=== PATIENT | male | born 1990 | race Caucasian/White ===

== ENCOUNTER 2023-11-10 19:47 | Observation (INO) ==
[2023-11-10 20:23] LABS: Basophils # (auto) 0.03 K/uL (0.00-0.20); Basophils % (auto) 0.3 %; Eosinophils # (auto) 0.02 K/uL (0.00-0.50); Eosinophils % (auto) 0.2 %; Hematocrit (blood only) 47.9 % (42.0-52.0); Immature Granulocytes # (auto) 0.04 K/uL (0.01-0.20); Immature Granulocytes % (auto) 0.4 %; Lymphocytes # (auto) 1.49 K/uL (1.20-3.40); Lymphocytes % (auto) 13.1 %; Mean Corpuscular Hemoglobin 29.1 pg (25.0-34.0); Mean Corpuscular Hgb Conc 35.5 g/dL (32.0-36.0); Mean Corpuscular Volume 81.9 fL (80.0-100.0); Mean Platelet Volume 12.1 fL (9.4-12.4); Monocytes # (auto) 0.76 K/uL (0.11-0.59); Monocytes % (auto) 6.7 %; Neutrophils # (auto) 9.07 K/uL (1.40-6.50); Neutrophils % (auto) 79.3 %; Platelet Count 230 K/uL (130-400); RDW Coefficient of Variation 12.2 % (11.5-14.5); RDW Standard Deviation 36.4 fL (36.4-46.3); Red Blood Count 5.85 M/uL (4.70-6.10); White Blood Count 11.41 K/ul (4.8-10.8)
[2023-11-10] MEDS: SODIUM CHLORIDE 0.9% 1,000 ML IV ONE (20:36)
--- NOTE | 2023-11-10 20:36 | Emergency Department Note ---
Impression & Plan Bloody diarrhea, Acute dehydration, Acute hyperglycemia, Leukocytosis ED Provider Note NAME: DONOVAN CAMPOVERDE AGE: 32 SEX: M : 1990 ARRIVES VIA: Walk-In INFORMANT: [Patient] ED PROVIDER(S): [Roberto Galindo MD] CHIEF COMPLAINT: Bloody diarrhea HISTORY OF PRESENT ILLNESS: The patient is a 32-year-old male who states he had bloody mucousy diarrhea all day. He has had multiple bouts. He noticed some nausea but no vomiting. He has really no abdominal pain. He has had some sweats but no documented fever although, he felt like he was warm. He feels he may be dehydrated. He has not had any sick contacts that had him concerned. He did have a salad that was quite old and he wonders if this caused his trouble. He has no history of similar difficulty. PMHx/PSHx/Social Hx: See Below PHYSICAL EXAM: GENERAL: Patient is in no acute distress. HEENT: No acute trauma, normocephalic atraumatic, mucous membranes moist, no nasal congestion. NECK: No stridor, no adenopathy, no meningismus, trachea is midline. LUNGS: Clear to auscultation bilaterally, no wheeze, no rhonchi, breath sounds equal. HEART: Mildly tachycardic, regular rhythm, no murmurs. ABDOMEN: Soft, nontender, no peritonitis. Obese. EXTREMITIES: No cyanosis, full range of motion of all the joints without pain or difficulty. NEUROLOGIC: Oriented x 3, no acute motor or sensory deficits, no focal weakness. SKIN: No jaundice, no diaphoresis. DIFFERENTIAL DIAGNOSIS: Bacterial or viral intestinal infection, foodborne or viral illness, colitis, diverticulitis, dehydration, among others. EMERGENCY DEPARTMENT PROCEDURES: MEDICAL DECISION MAKING: There is a mild leukocytosis, this could be consistent with infection or the stress of his presentation. There was a normal hemoglobin and platelet count. VBG did not show any acidosis. Sodium was slightly low. Sugar was quite high at 314. A mild anion gap was seen. No concerning liver enzyme elevation. On exam, the patient appeared dehydrated. He was somewhat tachycardic. The patient received IV Tylenol. He was given IV Zofran. He was given a liter of IV saline and a liter of IV lactated Ringer's. The patient is still mildly tachycardic. He has not been able to provide a stool sample for testing. Given the dehydration, given the bloody stool, given the tachycardia and now the new onset hyperglycemia, I do think hospitalization is indicated. I spoke with the patient and case management, the on-call hospitalist was consulted. Prior/Outside records/notes reviewed: None Imaging/x-ray results per my interpretation: Chronic Medical/Social conditions affecting care: Care/Management discussed with: Case management, the on-call hospitalist. Level of care consideration(s): After review of the information above and other included data: --I believe the patient requires escalation of care to admission DISPOSITION: Admission Past Med/Surg History Problem List (Updated 11/10/23 @ 23:21 by Roberto Galindo MD) Leukocytosis (Acute) Acute hyperglycemia (Acute) Acute dehydration (Acute) Bloody diarrhea (Acute) Medical History Obese Social History Smoking Status: Never smoker Feels Safe at Home: Yes Allergies Allergies Allergy/AdvReac Type Severity Reaction Status Date / Time amoxicillin Allergy Intermediate Rash Verified 11/10/23 22:36 dog dander Allergy Mild SNEEZING, Verified 11/10/23 22:36 CONGESTION pollen extracts Allergy Mild SNEEZING, Verified 11/10/23 22:36 CONGESTION Home Meds Home Medications Medication Instructions Recorded Confirmed No Known Home Medications 11/10/23 11/10/23 Results & Data (ED) Vital Signs Vital Signs - 24 hr 11/10/23 19:52 11/10/23 19:57 11/10/23 19:57 Temperature 36.6 C Temperature Source Oral Pulse Rate 98 H Pulse Rate [Apical] Pulse Rhythm Regular Pulse Rhythm [Apical] Pulse Strength [Apical] Respiratory Rate 19 Respiratory Effort / Characteristics Non-Labored Non-Labored Spontaneous Respiratory Depth Normal Normal Respiratory Pattern Blood Pressure 161/95 H Blood Pressure [Right Arm] Blood Pressure Mean 117 Blood Pressure Mean [Right Arm] Blood Pressure Position [Right Arm] Pulse Oximetry 92 Oxygen Delivery Method Room Air Room Air Sepsis Recent Fever Within 48 Hours Yes Sepsis New/Unexplained Change in Mental Status No Sepsis Action Taken by Nursing No Action Required 11/10/23 21:33 11/10/23 21:39 Temperature Temperature Source Pulse Rate 116 H Pulse Rate [Apical] 105 H Pulse Rhythm Pulse Rhythm [Apical] Regular Pulse Strength [Apical] Normal Respiratory Rate 18 Respiratory Effort / Characteristics Non-Labored Spontaneous Respiratory Depth Normal Respiratory Pattern Regular Blood Pressure Blood Pressure [Right Arm] 135/93 Blood Pressure Mean Blood Pressure Mean [Right Arm] 107 Blood Pressure Position [Right Arm] Lying Pulse Oximetry 99 Oxygen Delivery Method Room Air Sepsis Recent Fever Within 48 Hours Sepsis New/Unexplained Change in Mental Status Sepsis Action Taken by Group Home Medications Current Medication List: was personally reviewed by me Laboratory Data Attestation: I reviewed the patient's lab results. 11/10/23 20:00 11/10/23 20:00 Lab Results 11/10/23 11/10/23 Range/Units 20:00 21:48 WBC 11.41 H (4.8-10.8) K/ul RBC 5.85 (4.70-6.10) M/uL Hgb 17.0 (14.0-18.0) g/dl Hct 47.9 (42.0-52.0) % MCV 81.9 (80.0-100.0) fL MCH 29.1 (25.0-34.0) pg MCHC 35.5 (32.0-36.0) g/dL RDW Std Deviation 36.4 (36.4-46.3) fL RDW Coeff of Saima 12.2 (11.5-14.5) % Plt Count 230 (130-400) K/uL MPV 12.1 (9.4-12.4) fL Immature Gran % (Auto) 0.4 % Neut % (Auto) 79.3 % Lymph % (Auto) 13.1 % Metcalfe % (Auto) 6.7 % Eos % (Auto) 0.2 % Baso % (Auto) 0.3 % Neut # (Auto) 9.07 H (1.40-6.50) K/uL Lymph # (Auto) 1.49 (1.20-3.40) K/uL Metcalfe # (Auto) 0.76 H (0.11-0.59) K/uL Eos # (Auto) 0.02 (0.00-0.50) K/uL Baso # (Auto) 0.03 (0.00-0.20) K/uL Immature Gran # (Auto) 0.04 (0.01-0.20) K/uL VBG pH 7.40 (7.36-7.41) VBG pCO2 39 (38-50) mmHg VBG pO2 42 mmHg VBG HCO3 24 mmol/L VBG O2 Saturation 73.4 % VBG Base Excess -0.5 mEq/L Sodium 132 L (136-145) mmol/L Potassium 4.4 (3.5-5.1) mmol/L Chloride 97 L (98-107) mmol/L Carbon Dioxide 22 (21-32) mmol/L Anion Gap 13 H (3-11) BUN 10 (6-23) mg/dl Creatinine 0.79 (0.6-1.4) mg/dl Est Cr Clr Drug Dosing 213.9 ml/min Est GFR ( Amer) 137.7 ml/min Est GFR (Non-Af Amer) 118.8 ml/min BUN/Creatinine Ratio 12.7 (10-20) Glucose 314 H* (70-99(Fasting)) mg/dl Calcium 9.7 (8.6-10.3) mg/dl Magnesium 1.8 (1.7-2.4) mg/dl Total Bilirubin 1.0 (0.2-1.0) mg/dl AST 25 (13-39) U/L ALT 54 H (7-52) U/L Alkaline Phosphatase 40 (34-104) U/L Total Protein 8.1 (6.0-8.3) gm/dl Albumin 4.7 (3.4-5.0) gm/dl Globulin 3.4 (2.5-4.0) gm/dl Albumin/Globulin Ratio 1.4 (0.9-2) Administered Medications Discontinued Medications Acetaminophen (Ofirmev) 1,000 mg in 100 mls @ 400 mls/hr IV NOW STA Stop: 11/10/23 20:40 Last Infusion: 11/10/23 21:38 Dose: Infused Documented By: Admin: 11/10/23 20:37 Dose: 400 mls/hr Documented By: CINDY Sodium Chloride (Nss) 1,000 mls @ 999 mls/hr IV .Q1H1M ONE Stop: 11/10/23 21:26 Last Infusion: 11/10/23 21:39 Dose: Infused Documented By: Admin: 11/10/23 20:36 Dose: 999 mls/hr Documented By: CINDY Lactated Ringer's (Lr) 1,000 mls @ 999 mls/hr IV .Q1H1M ONE Stop: 11/10/23 21:32 Last Admin: 11/10/23 21:38 Dose: 999 mls/hr Documented By: ÓSCAR Ondansetron HCl (Ondansetron Inj 2 Mg/Ml 2 Ml Vial) 4 mg IV NOW STA Stop: 11/10/23 20:27 Last Admin: 11/10/23 20:37 Dose: 4 mg Documented By: CINDY Discharge Plan Visit Data Chief Complaint: Diarrhea Stated Complaint: DIARRHEA WITH BLODD, NAUSEA ED Provider: Roberto Galindo Discharge Problem: Bloody diarrhea, Acute dehydration, Acute hyperglycemia, Leukocytosis Patient Disposition: Admitted As Inpatient Condition: Fair Forms Stand Alone Forms: [facility], Important Visit Information Prescriptions Prescriptions: No Action No Known Home Medications Referrals Referrals: PCP,NO [Physician] - Discharge Problem: Leukocytosis Qualifiers: Leukocytosis type: unspecified Qualified Code(s): D72.829 - Elevated white blood cell count, unspecified
[2023-11-10] MEDS: ACETAMINOPHEN 1,000 MG/100 ML VIAL IV STA (20:37)
[2023-11-10] MEDS: ONDANSETRON INJ 2 MG/ML 2 ML VIAL IV STA (20:37)
[2023-11-10 20:49] LABS: Albumin Globulin Ratio 1.4 (0.9-2); Albumin Level 4.7 gm/dl (3.4-5.0); BUN Creatinine Ratio 12.7 (10-20); Calcium 9.7 mg/dl (8.6-10.3); Creatinine Clr Calc Pharmacy 213.9 ml/min; Est GFR (African American) 137.7 ml/min; Est GFR (Non-African American) 118.8 ml/min; Globulin 3.4 gm/dl (2.5-4.0); Magnesium 1.8 mg/dl (1.7-2.4); Potassium 4.4 mmol/L (3.5-5.1); Total Protein 8.1 gm/dl (6.0-8.3)
[2023-11-10] MEDS: LACTATED RINGER'S 1,000 ML IV ONE (21:38)
[2023-11-10 21:54] LABS: Base Excess VBG -0.5 mEq/L; HCO3 VBG 24 mmol/L; Oxygen Saturation VBG 73.4 %; PCO2 VBG 39 mmHg (38-50); PO2 VBG 42 mmHg
[2023-11-11 02:00] LABS: Adenovirus F 40/41 PCR Not Detected (NotDetected); Astrovirus PCR Not Detected (NotDetected); Campylobacter PCR Not Detected (NotDetected); Cryptosporidium PCR Not Detected (NotDetected); Cyclospora cayetanensis PCR Not Detected (NotDetected); Entamoeba histolytica PCR Not Detected (NotDetected); Enteroaggregative E.coli(EAEC) Not Detected (NotDetected); Enterotoxigenic E.coli (ETEC) Not Detected (NotDetected); Giardia lamblia PCR Not Detected (NotDetected); Norovirus GI/GII PCR Not Detected (NotDetected); Plesiomonas shigelloides PCR Not Detected (NotDetected); Rotavirus A PCR Not Detected (NotDetected); Salmonella PCR Not Detected (NotDetected); Sapovirus PCR Not Detected (NotDetected); Shiga-like Toxin E.coli (STEC) Not Detected (NotDetected); Shigella/Enteroinvasive E.coli Not Detected (NotDetected); Vibrio cholerae PCR Not Detected (NotDetected); Vibrio species PCR Not Detected (NotDetected); Yersinia enterocolitica PCR Not Detected (NotDetected)
[2023-11-11 02:03] LABS: Enteropathogenic E.coli (EPEC) DETECTED (NotDetected)
[2023-11-11] MEDS ORDERED: DEXTROSE 50% 50 ML SYRINGE IV PRN (02:21)
[2023-11-11] MEDS ORDERED: GLUCOSE 10 TAB/TUBE PO PRN (02:21)
[2023-11-11] MEDS ORDERED: GLUCOSE 40% GEL 15 GM TUBE PO PRN (02:21)
[2023-11-11] MEDS ORDERED: CARBOHYDRATES FOR HYPOGLYCEMIA PO PRN (02:21)
[2023-11-11] MEDS ORDERED: GLUCAGON FOR INJ 1 MG VIAL SQ PRN (02:21)
--- NOTE | 2023-11-11 02:26 | History & Physical Report ---
Date of Service November 11, 2023 Assessment & Plan (1) Bloody diarrhea: Plan: 32-year-old male with past medical history significant for obesity comes in because of 1 day duration of bloody diarrhea and also found to have hyperglycemia.Patient states today he had several episodes of bloody mucousy diarrhea. When he is having bowel movements has some abdominal discomfort otherwise no abdominal pain. No recent travel. No outside food. No fevers. Was lightheaded earlier. No headaches. No blurred vision. No runny nose or sore throat. No cough. No chest pain or shortness of breath. No nausea currently. Hemodynamics okay. Bloody diarrhea Dehydration Stool studies showing positive for enteropathogenic E. coli Supportive care with IV fluids Monitor electrolytes GI consult in am Hyperglycemia New onset diabetes Insulin sliding scale Follow HbA1c levels Morbid obesity Needs counseling Nutrition follow-up Sleep study as outpatient DVT prophylaxis SCDs for now Disposition Medical floor Full code History of Present Illness Chief Complaint: Diarrhea and hyperglycemia Primary Care Provider: Debra Coburn MD 32-year-old male with past medical history significant for obesity comes in because of 1 day duration of bloody diarrhea and also found to have hyperglycemia.Patient states today he had several episodes of bloody mucousy diarrhea. When he is having bowel movements has some abdominal discomfort otherwise no abdominal pain. No recent travel. No outside food. No fevers. Was lightheaded earlier. No headaches. No blurred vision. No runny nose or sore throat. No cough. No chest pain or shortness of breath. No nausea currently. Hemodynamics okay. Past med history. As mentioned above Past surgical history. Stumbled. Social history. No smoking. Alcohol occasional. No drug use. Family history. Paternal grandmother has diabetes and kidney issues Allergies Allergy/AdvReac Type Severity Reaction Status Date / Time amoxicillin Allergy Intermediate Rash Verified 11/10/23 22:36 dog dander Allergy Mild SNEEZING, Verified 11/10/23 22:36 CONGESTION pollen extracts Allergy Mild SNEEZING, Verified 11/10/23 22:36 CONGESTION Home Medications Medication Instructions Recorded Confirmed Type No Known Home Medications 11/10/23 11/10/23 History Past Med/Surg History Problem List (Updated 11/10/23 @ 23:21 by Roberto Galindo MD) Leukocytosis (Acute) Acute hyperglycemia (Acute) Acute dehydration (Acute) Bloody diarrhea (Acute) Medical History Obese Social History Smoking Status: Never smoker Do You Dip or Chew Tobacco: No; Hx Alcohol Use: No Hx Substance Use: No Preferred Language: Yi Communication Ability: Effective Induction Heat Treater Required: No Beliefs That Will Affect Care: None Current Living Situation: Family Other Information That Helps Us Care for You: No Feels Safe at Home: Yes Safety Concerns: Feels Safe At This Time Assistive Devices: None Review of Systems Review of Systems: All systems reviewed & are unremarkable except as noted in HPI & below Physical Exam Physical Exam: General- Not in distress. Head- atraumatic Eyes- PERRL. ENT- oropharynx clear Neck- supple, no JVD. Lungs- clear to auscultation no wheezing or crackles. Heart- regular rhythm; no murmur, no gallop. Abdomen- normal bowel sounds, soft, nontender, no distension Extremities- no pretibial edema, no erythema seen Neuro- alert, oriented PERRL, no facial palsy; no dysarthria; moves extremities. Results & Data Results & Data Vital Signs (Past 12 Hours) Vital Signs Temp Pulse Pulse Resp BP BP Pulse Ox 11/11/23 01:35 87 11/10/23 23:00 102 H 18 142/94 H 99 11/10/23 21:39 105 H 18 135/93 99 11/10/23 21:33 116 H 11/10/23 19:57 11/10/23 19:52 36.6 C 98 H 19 161/95 H 92 O2 Del Method 11/11/23 01:35 11/10/23 23:00 Room Air 11/10/23 21:39 Room Air 11/10/23 21:33 11/10/23 19:57 Room Air 11/10/23 19:52 Room Air Diagnostic Findings Laboratory Results WBC 11.41 K/ul (4.8-10.8) H 11/10/23 20:00 RBC 5.85 M/uL (4.70-6.10) 11/10/23 20:00 Hgb 17.0 g/dl (14.0-18.0) 11/10/23 20:00 Hct 47.9 % (42.0-52.0) 11/10/23 20:00 MCV 81.9 fL (80.0-100.0) 11/10/23 20:00 MCH 29.1 pg (25.0-34.0) 11/10/23 20:00 MCHC 35.5 g/dL (32.0-36.0) 11/10/23 20:00 RDW Std Deviation 36.4 fL (36.4-46.3) 11/10/23 20:00 RDW Coeff of Saima 12.2 % (11.5-14.5) 11/10/23 20:00 Plt Count 230 K/uL (130-400) 11/10/23 20:00 MPV 12.1 fL (9.4-12.4) 11/10/23 20:00 Immature Gran % (Auto) 0.4 % 11/10/23 20:00 Neut % (Auto) 79.3 % 11/10/23 20:00 Lymph % (Auto) 13.1 % 11/10/23 20:00 Floyd % (Auto) 6.7 % 11/10/23 20:00 Eos % (Auto) 0.2 % 11/10/23 20:00 Baso % (Auto) 0.3 % 11/10/23 20:00 Neut # (Auto) 9.07 K/uL (1.40-6.50) H 11/10/23 20:00 Lymph # (Auto) 1.49 K/uL (1.20-3.40) 11/10/23 20:00 Floyd # (Auto) 0.76 K/uL (0.11-0.59) H 11/10/23 20:00 Eos # (Auto) 0.02 K/uL (0.00-0.50) 11/10/23 20:00 Baso # (Auto) 0.03 K/uL (0.00-0.20) 11/10/23 20:00 Immature Gran # (Auto) 0.04 K/uL (0.01-0.20) 11/10/23 20:00 VBG pH 7.40 (7.36-7.41) 11/10/23 21:48 VBG pCO2 39 mmHg (38-50) 11/10/23 21:48 VBG pO2 42 mmHg 11/10/23 21:48 VBG HCO3 24 mmol/L 11/10/23 21:48 VBG O2 Saturation 73.4 % 11/10/23 21:48 VBG Base Excess -0.5 mEq/L 11/10/23 21:48 Sodium 132 mmol/L (136-145) L 11/10/23 20:00 Potassium 4.4 mmol/L (3.5-5.1) 11/10/23 20:00 Chloride 97 mmol/L (98-107) L 11/10/23 20:00 Carbon Dioxide 22 mmol/L (21-32) 11/10/23 20:00 Anion Gap 13 (3-11) H 11/10/23 20:00 BUN 10 mg/dl (6-23) 11/10/23 20:00 Creatinine 0.79 mg/dl (0.6-1.4) 11/10/23 20:00 Est Cr Clr Drug Dosing 213.9 ml/min 11/10/23 20:00 Est GFR ( Amer) 137.7 ml/min 11/10/23 20:00 Est GFR (Non-Af Amer) 118.8 ml/min 11/10/23 20:00 BUN/Creatinine Ratio 12.7 (10-20) 11/10/23 20:00 Glucose 314 mg/dl (70-99(Fasting)) H* 11/10/23 20:00 Calcium 9.7 mg/dl (8.6-10.3) 11/10/23 20:00 Magnesium 1.8 mg/dl (1.7-2.4) 11/10/23 20:00 Total Bilirubin 1.0 mg/dl (0.2-1.0) 11/10/23 20:00 AST 25 U/L (13-39) 11/10/23 20:00 ALT 54 U/L (7-52) H 11/10/23 20:00 Alkaline Phosphatase 40 U/L (34-104) 11/10/23 20:00 Total Protein 8.1 gm/dl (6.0-8.3) 11/10/23 20:00 Albumin 4.7 gm/dl (3.4-5.0) 11/10/23 20:00 Globulin 3.4 gm/dl (2.5-4.0) 11/10/23 20:00 Albumin/Globulin Ratio 1.4 (0.9-2) 11/10/23 20:00 Stl C. cayetanensis PCR Not Detected (NotDetected) 11/11/23 00:12 Stool Rotavirus A PCR Not Detected (NotDetected) 11/11/23 00:12 Stl Adenov F 40/41 PCR Not Detected (NotDetected) 11/11/23 00:12 Stool Astrovirus (PCR) Not Detected (NotDetected) 11/11/23 00:12 Stool Campylobacter PCR Not Detected (NotDetected) 11/11/23 00:12 Stl C. diff Tox B Gene Negative Cdiff Gene (Neg) 11/11/23 00:12 Stool Cryptosporidium PCR Not Detected (NotDetected) 11/11/23 00:12 Stl E.coli Shiga Tox PCR Not Detected (NotDetected) 11/11/23 00:12 Stl Enterotoxigenic E PCR Not Detected (NotDetected) 11/11/23 00:12 Stool EPEC (PCR) DETECTED (NotDetected) A* 11/11/23 00:12 Stool EAEC (PCR) Not Detected (NotDetected) 11/11/23 00:12 Stl E. histolytica PCR Not Detected (NotDetected) 11/11/23 00:12 Stool Giardia Lamblia PCR Not Detected (NotDetected) 11/11/23 00:12 Stool Salmonella PCR Not Detected (NotDetected) 11/11/23 00:12 Stool Sapovirus (PCR) Not Detected (NotDetected) 11/11/23 00:12 Stl P. shigelloides PCR Not Detected (NotDetected) 11/11/23 00:12 Stl Shigella/EIEC PCR Not Detected (NotDetected) 11/11/23 00:12 St Y.enterocolitica PCR Not Detected (NotDetected) 11/11/23 00:12 Stool Vibrio (PCR) Not Detected (NotDetected) 11/11/23 00:12 Stl Vibrio cholerae PCR Not Detected (NotDetected) 11/11/23 00:12 Stl Norovirus GI/GII PCR Not Detected (NotDetected) 11/11/23 00:12 Code Status & VTE Plan VTE Prophylaxis Plan VTE Prophylaxis will be ordered: Yes
[2023-11-11] MEDS: LACTATED RINGER'S 1,000 ML IV SCH (02:54)
[2023-11-11 07:26] LABS: Basophils # (auto) 0.04 K/uL (0.00-0.20); Basophils % (auto) 0.5 %; Eosinophils # (auto) 0.15 K/uL (0.00-0.50); Eosinophils % (auto) 1.7 %; Hematocrit (blood only) 43.9 % (42.0-52.0); Hemoglobin 14.9 g/dl (14.0-18.0); Immature Granulocytes # (auto) 0.04 K/uL (0.01-0.20); Immature Granulocytes % (auto) 0.5 %; Lymphocytes # (auto) 2.85 K/uL (1.20-3.40); Lymphocytes % (auto) 32.2 %; Mean Corpuscular Hemoglobin 28.7 pg (25.0-34.0); Mean Corpuscular Hgb Conc 33.9 g/dL (32.0-36.0); Mean Corpuscular Volume 84.4 fL (80.0-100.0); Mean Platelet Volume 11.5 fL (9.4-12.4); Monocytes # (auto) 0.89 K/uL (0.11-0.59); Monocytes % (auto) 10.1 %; Neutrophils # (auto) 4.87 K/uL (1.40-6.50); Platelet Count 182 K/uL (130-400); RDW Coefficient of Variation 12.5 % (11.5-14.5); RDW Standard Deviation 38.1 fL (36.4-46.3); White Blood Count 8.84 K/ul (4.8-10.8)
[2023-11-11 07:59] LABS: Calcium 8.7 mg/dl (8.6-10.3); Magnesium 1.7 mg/dl (1.7-2.4); Potassium 3.9 mmol/L (3.5-5.1)
[2023-11-11 08:04] LABS: Creatinine Clr Calc Pharmacy 244.9 ml/min; Est GFR (African American) 145.6 ml/min; Est GFR (Non-African American) 125.6 ml/min
[2023-11-11 08:23] LABS: Estimated Average Glucose 255 mg/dl; Hemoglobin A1C 10.5 % (4.5-5.6)
[2023-11-11] MEDS: ACETAMINOPHEN 325 MG TAB PO PRN (09:22)
[2023-11-11] MEDS: INSULIN ASPART PER UNIT CHARGE SC SCH (09:25)
--- NOTE | 2023-11-11 11:00 | Gastrointestinal Consultation ---
Date of Consultation November 11, 2023 Assessment & Plan (1) Bloody diarrhea: Patient presented to ED 11/09 with complaints of blood diarrhea that started that same day. he was found to have E coli and feels diarrhea has been slowing down since admission. - for now, recommend supportive care since patient is seeing improvement. - will discuss the case further with Dr. Nicholas. further recommendations to follow. Supervising Physician Co-Signing Physician Notes I saw and examined this patient with our nurse practitioner and agree with her assessment and plan. Clinically improving. Clinical picture consistent with E. coli enterocolitis. In light of lack of fever resolving leukocytosis as well as less frequent bowel movements no need to implement antibiotics at this time. Continue supportive care. Can advance him to a low residue diet as tolerated. History of Present Illness Reason for Consultation: bloody diarrhea Requesting Physician: Moris Bond MD Attending Physician: Umu Vidal MD History of Present Illness Patient is a 32 year old male with past medical history significant for obesity presented to the ED 11/09 due to bloody diarrhea that started that day. He notes he had several bloody bowel movements that were too numerable to count. He was also found to have hyperglycemia. He is not sure what may have triggered this but admits he had eaten bagged lettuce that he felt had gone bad. He had some nausea with the onset of symptoms as well as cramping abdominal pain that was improved with bowel movements. Upon evaluation he was found to have E coli on stool studies. He notes that since admission his nausea and pain have improved. he also notes that diarrhea is slowing down and he is having less bowel movements. He is tolerating clear liquids now, and tells me last night he had eaten a turkey sandwich which he tolerated. He has never had GI evaluation in the past. 11/10/23 wbc 11.4, rest of cbc unremarkable. sodium 132, chloride 97, glucose 314, lfts wnl except ALT 54. 11/11/23 cbc wnl, CMP wnl outside glucose 236. stool studies positive for E coli EPEC. rest of stool studies were unremarkable. Allergies Allergy/AdvReac Type Severity Reaction Status Date / Time amoxicillin Allergy Intermediate Rash Verified 11/10/23 22:36 dog dander Allergy Mild SNEEZING, Verified 11/10/23 22:36 CONGESTION pollen extracts Allergy Mild SNEEZING, Verified 11/10/23 22:36 CONGESTION Home Medications Medication Instructions Recorded Confirmed Type No Known Home Medications 11/10/23 11/10/23 History Patient History Medical History Obese Social History Smoking Status: Never smoker Do You Dip or Chew Tobacco: No; Hx Alcohol Use: No Hx Substance Use: No Preferred Language: Mexican Communication Ability: Effective [employer] Required: No Beliefs That Will Affect Care: None Current Living Situation: Family Other Information That Helps Us Care for You: No Feels Safe at Home: Yes Safety Concerns: Feels Safe At This Time Assistive Devices: None Review of Systems Review of Systems: All systems reviewed & are unremarkable except as noted in HPI & below Physical Exam Constitutional: WD/WN, vitals as above Respiratory: normal respiratory effort, lungs clear to auscultation Cardiovascular: Rate/Rhythm: regular rate and regular rhythm Gastrointestinal (Abdomen): normal bowel sounds, soft, nontender, no hepatosplenomegaly Psychiatric: Orientation: alert and oriented x 3 Results & Data Vital Signs (Past 12 Hours) Vital Signs Temp Pulse Pulse Pulse Resp BP BP 11/11/23 09:29 172/98 H 11/11/23 08:22 98.2 F 80 18 165/108 H 11/11/23 07:13 74 11/11/23 06:25 82 16 125/85 11/11/23 02:45 97.5 F L 90 18 117/69 11/11/23 01:35 87 11/10/23 23:00 102 H 18 142/94 H Pulse Ox O2 Del Method 11/11/23 09:29 11/11/23 08:22 92 Room Air 11/11/23 07:13 11/11/23 06:25 95 Room Air 11/11/23 02:45 99 Room Air 11/11/23 01:35 11/10/23 23:00 99 Room Air Laboratory Results Laboratory Results - last 48 hr 11/10/23 11/10/23 11/11/23 20:00 21:48 00:12 WBC 11.41 H RBC 5.85 Hgb 17.0 Hct 47.9 MCV 81.9 MCH 29.1 MCHC 35.5 RDW Std Deviation 36.4 RDW Coeff of Saima 12.2 Plt Count 230 MPV 12.1 Immature Gran % (Auto) 0.4 Neut % (Auto) 79.3 Lymph % (Auto) 13.1 Harmon % (Auto) 6.7 Eos % (Auto) 0.2 Baso % (Auto) 0.3 Neut # (Auto) 9.07 H Lymph # (Auto) 1.49 Harmon # (Auto) 0.76 H Eos # (Auto) 0.02 Baso # (Auto) 0.03 Immature Gran # (Auto) 0.04 VBG pH 7.40 VBG pCO2 39 VBG pO2 42 VBG HCO3 24 VBG O2 Saturation 73.4 VBG Base Excess -0.5 Sodium 132 L Potassium 4.4 Chloride 97 L Carbon Dioxide 22 Anion Gap 13 H BUN 10 Creatinine 0.79 Est Cr Clr Drug Dosing 213.9 Est GFR ( Amer) 137.7 Est GFR (Non-Af Amer) 118.8 BUN/Creatinine Ratio 12.7 Glucose 314 H* POC Glucose Estimat Average Glucose Hemoglobin A1c Calcium 9.7 Magnesium 1.8 Total Bilirubin 1.0 AST 25 ALT 54 H Alkaline Phosphatase 40 Total Protein 8.1 Albumin 4.7 Globulin 3.4 Albumin/Globulin Ratio 1.4 Stl C. cayetanensis PCR Not Detected Stool Rotavirus A PCR Not Detected Stl Adenov F 40/41 PCR Not Detected Stool Astrovirus (PCR) Not Detected Stool Campylobacter PCR Not Detected Stl C. diff Tox B Gene Negative Cdiff Gene Stool Cryptosporidium PCR Not Detected Stl E.coli Shiga Tox PCR Not Detected Stl Enterotoxigenic E PCR Not Detected Stool EPEC (PCR) DETECTED A* Stool EAEC (PCR) Not Detected Stl E. histolytica PCR Not Detected Stool Giardia Lamblia PCR Not Detected Stool Salmonella PCR Not Detected Stool Sapovirus (PCR) Not Detected Stl P. shigelloides PCR Not Detected Stl Shigella/EIEC PCR Not Detected St Y.enterocolitica PCR Not Detected Stool Vibrio (PCR) Not Detected Stl Vibrio cholerae PCR Not Detected Stl Norovirus GI/GII PCR Not Detected 11/11/23 11/11/23 11/11/23 07:09 08:19 11:16 WBC 8.84 RBC 5.20 Hgb 14.9 Hct 43.9 MCV 84.4 MCH 28.7 MCHC 33.9 RDW Std Deviation 38.1 RDW Coeff of Saima 12.5 Plt Count 182 MPV 11.5 Immature Gran % (Auto) 0.5 Neut % (Auto) 55.0 Lymph % (Auto) 32.2 Harmon % (Auto) 10.1 Eos % (Auto) 1.7 Baso % (Auto) 0.5 Neut # (Auto) 4.87 Lymph # (Auto) 2.85 Harmon # (Auto) 0.89 H Eos # (Auto) 0.15 Baso # (Auto) 0.04 Immature Gran # (Auto) 0.04 VBG pH VBG pCO2 VBG pO2 VBG HCO3 VBG O2 Saturation VBG Base Excess Sodium 137 Potassium 3.9 Chloride 104 Carbon Dioxide 24 Anion Gap 9 BUN 9 Creatinine 0.69 Est Cr Clr Drug Dosing 244.9 Est GFR ( Amer) 145.6 Est GFR (Non-Af Amer) 125.6 BUN/Creatinine Ratio 13.0 Glucose 236 H POC Glucose 227 H 221 H Estimat Average Glucose 255 Hemoglobin A1c 10.5 H Calcium 8.7 Magnesium 1.7 Total Bilirubin AST ALT Alkaline Phosphatase Total Protein Albumin Globulin Albumin/Globulin Ratio Stl C. cayetanensis PCR Stool Rotavirus A PCR Stl Adenov F 40/41 PCR Stool Astrovirus (PCR) Stool Campylobacter PCR Stl C. diff Tox B Gene Stool Cryptosporidium PCR Stl E.coli Shiga Tox PCR Stl Enterotoxigenic E PCR Stool EPEC (PCR) Stool EAEC (PCR) Stl E. histolytica PCR Stool Giardia Lamblia PCR Stool Salmonella PCR Stool Sapovirus (PCR) Stl P. shigelloides PCR Stl Shigella/EIEC PCR St Y.enterocolitica PCR Stool Vibrio (PCR) Stl Vibrio cholerae PCR Stl Norovirus GI/GII PCR Coding Level of Care Code 16669 IN/OBS CONSULT LVL 3,45M Diagnoses Bloody diarrhea R19.7
--- NOTE | 2023-11-11 11:35 | Communication Note ---
Date of Service: November 11, 2023 Patient seen and examined Reports diarrhea with blood mixed in mucus. Denied abd pain. Reports nausea is resolved. No vomiting. Exam notable for morbidly obese man in no distress. No abd tenderness, Abd soft with normal bowel sounds Lab notable for hyperglycemia, HbA1c of 10.5 Stool PCR + EPEC Continue IVF Continue antinausea med prn Provided DM education Continue insulin DM educator consult placed. Other plans as detailed in H/P this AM
[2023-11-11 19:46] VITALS: O2SAT 98
[2023-11-12 06:55] LABS: Hematocrit (blood only) 42.7 % (42.0-52.0); Hemoglobin 14.8 g/dl (14.0-18.0); Mean Corpuscular Hemoglobin 28.8 pg (25.0-34.0); Mean Corpuscular Hgb Conc 34.7 g/dL (32.0-36.0); Mean Corpuscular Volume 83.1 fL (80.0-100.0); Mean Platelet Volume 11.8 fL (9.4-12.4); Platelet Count 177 K/uL (130-400); RDW Coefficient of Variation 12.3 % (11.5-14.5); RDW Standard Deviation 37.3 fL (36.4-46.3); Red Blood Count 5.14 M/uL (4.70-6.10); White Blood Count 7.26 K/ul (4.8-10.8)
[2023-11-12 07:28] LABS: BUN Creatinine Ratio 9.1 (10-20); Calcium 8.5 mg/dl (8.6-10.3); Est GFR (African American) 148.3 ml/min; Est GFR (Non-African American) 127.9 ml/min; Magnesium 1.9 mg/dl (1.7-2.4); Phosphorus 3.6 mg/dl (2.5-4.9); Potassium 3.7 mmol/L (3.5-5.1)
[2023-11-12 07:56] VITALS: BP 143/92; PULSE 68; RESP 16; TEMP 98.1
--- NOTE | 2023-11-12 09:38 | Gastroenterology Progress Note ---
Date of Service November 12, 2023 Assessment & Plan (1) Enterocolitis: Plan: Secondary to EPEC. Clinically improving. Continue low residue diet. Okay for discharge from GI standpoint. Admission and Anticipated Discharge Date Admission Date: November 11, 2023 Subjective Continues to feel better less bowel movements less bleeding denies abdominal pain shortness of breath or chest pain. Tolerated regular food last night. Physical Exam Physical Exam: No acute distress Respiratory rate regular Cardiac rhythm regular Abdomen soft nontender Results & Data Results & Data Vital Signs (Past 12 Hours) Vital Signs Temp Pulse Resp BP Pulse Ox O2 Del Method 11/12/23 07:54 36.7 C 68 16 143/92 H 98 Room Air Laboratory Results Laboratory Results - last 48 hr 11/10/23 11/10/23 11/11/23 20:00 21:48 00:12 WBC 11.41 H RBC 5.85 Hgb 17.0 Hct 47.9 MCV 81.9 MCH 29.1 MCHC 35.5 RDW Std Deviation 36.4 RDW Coeff of Saima 12.2 Plt Count 230 MPV 12.1 Immature Gran % (Auto) 0.4 Neut % (Auto) 79.3 Lymph % (Auto) 13.1 [place] % (Auto) 6.7 Eos % (Auto) 0.2 Baso % (Auto) 0.3 Neut # (Auto) 9.07 H Lymph # (Auto) 1.49 [place] # (Auto) 0.76 H Eos # (Auto) 0.02 Baso # (Auto) 0.03 Immature Gran # (Auto) 0.04 VBG pH 7.40 VBG pCO2 39 VBG pO2 42 VBG HCO3 24 VBG O2 Saturation 73.4 VBG Base Excess -0.5 Sodium 132 L Potassium 4.4 Chloride 97 L Carbon Dioxide 22 Anion Gap 13 H BUN 10 Creatinine 0.79 Est Cr Clr Drug Dosing 213.9 Est GFR ( Amer) 137.7 Est GFR (Non-Af Amer) 118.8 BUN/Creatinine Ratio 12.7 Glucose 314 H* POC Glucose Estimat Average Glucose Hemoglobin A1c Calcium 9.7 Phosphorus Magnesium 1.8 Total Bilirubin 1.0 AST 25 ALT 54 H Alkaline Phosphatase 40 Total Protein 8.1 Albumin 4.7 Globulin 3.4 Albumin/Globulin Ratio 1.4 Stl C. cayetanensis PCR Not Detected Stool Rotavirus A PCR Not Detected Stl Adenov F 40/41 PCR Not Detected Stool Astrovirus (PCR) Not Detected Stool Campylobacter PCR Not Detected Stl C. diff Tox B Gene Negative Cdiff Gene Stool Cryptosporidium PCR Not Detected Stl E.coli Shiga Tox PCR Not Detected Stl Enterotoxigenic E PCR Not Detected Stool EPEC (PCR) DETECTED A* Stool EAEC (PCR) Not Detected Stl E. histolytica PCR Not Detected Stool Giardia Lamblia PCR Not Detected Stool Salmonella PCR Not Detected Stool Sapovirus (PCR) Not Detected Stl P. shigelloides PCR Not Detected Stl Shigella/EIEC PCR Not Detected St Y.enterocolitica PCR Not Detected Stool Vibrio (PCR) Not Detected Stl Vibrio cholerae PCR Not Detected Stl Norovirus GI/GII PCR Not Detected 11/11/23 11/11/23 11/11/23 07:09 08:19 11:16 WBC 8.84 RBC 5.20 Hgb 14.9 Hct 43.9 MCV 84.4 MCH 28.7 MCHC 33.9 RDW Std Deviation 38.1 RDW Coeff of Saima 12.5 Plt Count 182 MPV 11.5 Immature Gran % (Auto) 0.5 Neut % (Auto) 55.0 Lymph % (Auto) 32.2 [place] % (Auto) 10.1 Eos % (Auto) 1.7 Baso % (Auto) 0.5 Neut # (Auto) 4.87 Lymph # (Auto) 2.85 [place] # (Auto) 0.89 H Eos # (Auto) 0.15 Baso # (Auto) 0.04 Immature Gran # (Auto) 0.04 VBG pH VBG pCO2 VBG pO2 VBG HCO3 VBG O2 Saturation VBG Base Excess Sodium 137 Potassium 3.9 Chloride 104 Carbon Dioxide 24 Anion Gap 9 BUN 9 Creatinine 0.69 Est Cr Clr Drug Dosing 244.9 Est GFR ( Amer) 145.6 Est GFR (Non-Af Amer) 125.6 BUN/Creatinine Ratio 13.0 Glucose 236 H POC Glucose 227 H 221 H Estimat Average Glucose 255 Hemoglobin A1c 10.5 H Calcium 8.7 Phosphorus Magnesium 1.7 Total Bilirubin AST ALT Alkaline Phosphatase Total Protein Albumin Globulin Albumin/Globulin Ratio Stl C. cayetanensis PCR Stool Rotavirus A PCR Stl Adenov F PCR Stool Astrovirus (PCR) Stool Campylobacter PCR Stl C. diff Tox B Gene Stool Cryptosporidium PCR Stl E.coli Shiga Tox PCR Stl Enterotoxigenic E PCR Stool EPEC (PCR) Stool EAEC (PCR) Stl E. histolytica PCR Stool Giardia Lamblia PCR Stool Salmonella PCR Stool Sapovirus (PCR) Stl P. shigelloides PCR Stl Shigella/EIEC PCR St Y.enterocolitica PCR Stool Vibrio (PCR) Stl Vibrio cholerae PCR Stl Norovirus GI/GII PCR 11/11/23 11/11/23 11/12/23 16:30 20:33 06:28 WBC 7.26 RBC 5.14 Hgb 14.8 Hct 42.7 MCV 83.1 MCH 28.8 MCHC 34.7 RDW Std Deviation 37.3 RDW Coeff of Saima 12.3 Plt Count 177 MPV 11.8 Immature Gran % (Auto) Neut % (Auto) Lymph % (Auto) [place] % (Auto) Eos % (Auto) Baso % (Auto) Neut # (Auto) Lymph # (Auto) [place] # (Auto) Eos # (Auto) Baso # (Auto) Immature Gran # (Auto) VBG pH VBG pCO2 VBG pO2 VBG HCO3 VBG O2 Saturation VBG Base Excess Sodium 140 Potassium 3.7 Chloride 103 Carbon Dioxide 29 Anion Gap 8 BUN 6 Creatinine 0.66 Est Cr Clr Drug Dosing 256.0 Est GFR ( Amer) 148.3 Est GFR (Non-Af Amer) 127.9 BUN/Creatinine Ratio 9.1 L Glucose 174 H POC Glucose 189 H 191 H Estimat Average Glucose Hemoglobin A1c Calcium 8.5 L Phosphorus 3.6 Magnesium 1.9 Total Bilirubin AST ALT Alkaline Phosphatase Total Protein Albumin Globulin Albumin/Globulin Ratio Stl C. cayetanensis PCR Stool Rotavirus A PCR Stl Adenov F 40/41 PCR Stool Astrovirus (PCR) Stool Campylobacter PCR Stl C. diff Tox B Gene Stool Cryptosporidium PCR Stl E.coli Shiga Tox PCR Stl Enterotoxigenic E PCR Stool EPEC (PCR) Stool EAEC (PCR) Stl E. histolytica PCR Stool Giardia Lamblia PCR Stool Salmonella PCR Stool Sapovirus (PCR) Stl P. shigelloides PCR Stl Shigella/EIEC PCR St Y.enterocolitica PCR Stool Vibrio (PCR) Stl Vibrio cholerae PCR Stl Norovirus GI/GII PCR 11/12/23 07:38 WBC RBC Hgb Hct MCV MCH MCHC RDW Std Deviation RDW Coeff of Saima Plt Count MPV Immature Gran % (Auto) Neut % (Auto) Lymph % (Auto) [place] % (Auto) Eos % (Auto) Baso % (Auto) Neut # (Auto) Lymph # (Auto) [place] # (Auto) Eos # (Auto) Baso # (Auto) Immature Gran # (Auto) VBG pH VBG pCO2 VBG pO2 VBG HCO3 VBG O2 Saturation VBG Base Excess Sodium Potassium Chloride Carbon Dioxide Anion Gap BUN Creatinine Est Cr Clr Drug Dosing Est GFR ( Amer) Est GFR (Non-Af Amer) BUN/Creatinine Ratio Glucose POC Glucose 145 H Estimat Average Glucose Hemoglobin A1c Calcium Phosphorus Magnesium Total Bilirubin AST ALT Alkaline Phosphatase Total Protein Albumin Globulin Albumin/Globulin Ratio Stl C. cayetanensis PCR Stool Rotavirus A PCR Stl Adenov F 40/41 PCR Stool Astrovirus (PCR) Stool Campylobacter PCR Stl C. diff Tox B Gene Stool Cryptosporidium PCR Stl E.coli Shiga Tox PCR Stl Enterotoxigenic E PCR Stool EPEC (PCR) Stool EAEC (PCR) Stl E. histolytica PCR Stool Giardia Lamblia PCR Stool Salmonella PCR Stool Sapovirus (PCR) Stl P. shigelloides PCR Stl Shigella/EIEC PCR St Y.enterocolitica PCR Stool Vibrio (PCR) Stl Vibrio cholerae PCR Stl Norovirus GI/GII PCR PG Care Time/CCT Total # of Minutes Spent Total Time Spent with Patient: Total time spent is greater than 50% in coordination of care (as documented) at patient's floor/unit and/or counseling patient: Coding Level of Care Code 08109 SUB INP/OBS CARE 235MIN Diagnoses Enterocolitis K52.9
--- NOTE | 2023-11-12 11:10 | Discharge Summary ---
Date of Service November 12, 2023 Admission HPI Per Admitting Provider 32-year-old male with past medical history significant for obesity comes in because of 1 day duration of bloody diarrhea and also found to have hyperglycemia.Patient states today he had several episodes of bloody mucousy diarrhea. When he is having bowel movements has some abdominal discomfort otherwise no abdominal pain. No recent travel. No outside food. No fevers. Was lightheaded earlier. No headaches. No blurred vision. No runny nose or sore throat. No cough. No chest pain or shortness of breath. No nausea currently. Hemodynamics okay. Past med history. As mentioned above Past surgical history. Stumbled. Social history. No smoking. Alcohol occasional. No drug use. Family history. Paternal grandmother has diabetes and kidney issues Admission Exam Per Admitting Provider General- Not in distress. Head- atraumatic Eyes- PERRL. ENT- oropharynx clear Neck- supple, no JVD. Lungs- clear to auscultation no wheezing or crackles. Heart- regular rhythm; no murmur, no gallop. Abdomen- normal bowel sounds, soft, nontender, no distension Extremities- no pretibial edema, no erythema seen Neuro- alert, oriented PERRL, no facial palsy; no dysarthria; moves extremities. Principal Diagnosis EPEC Enterocolitis Newly diagnosed Diabetes mellitus Discharge Exam Constitutional + well hydrated and + obese; no acute distress Eyes PERRL, conjunctivae normal, anicteric sclerae ENMT external ear and nose normal, oropharynx normal Respiratory normal respiratory effort, lungs clear to auscultation Cardiovascular RRR, no murmur, no edema Gastrointestinal (Abdomen) normal bowel sounds, soft, nontender, no hepatosplenomegaly Musculoskeletal no cyanosis or clubbing, extremities motor strength 5/5 Neurologic PERRL, EOMI, accommodation nl, no face palsy, no dysarthria Psychiatric A+Ox3, euthymic affect Discharge Data Allergies Allergy/AdvReac Type Severity Reaction Status Date / Time amoxicillin Allergy Intermediate Rash Verified 11/10/23 22:36 dog dander Allergy Mild SNEEZING, Verified 11/10/23 22:36 CONGESTION pollen extracts Allergy Mild SNEEZING, Verified 11/10/23 22:36 CONGESTION Consultations 11/10/23 22:09 ED Decision to Admit Stat 11/11/23 08:00 Consult Gastroenterology Routine Diabetes Follow up Diabetes Follow-up Needed for HgbA1c >9%,Newly Diagnosed Diabetes Hospital Course (1) Bloody diarrhea: 32-year-old male with past medical history significant for obesity comes in because of 1 day duration of bloody diarrhea and also found to have hyperglycemia.Patient states today he had several episodes of bloody mucousy diarrhea. When he is having bowel movements has some abdominal discomfort otherwise no abdominal pain. No recent travel. No outside food. No fevers. Was lightheaded earlier. No headaches. No blurred vision. No runny nose or sore throat. No cough. No chest pain or shortness of breath. No nausea currently. Hemodynamics okay. Bloody diarrhea Dehydration Stool studies showing positive for enteropathogenic E. coli Hence EPEC Enterocolitis This was managed with supportive care, IVF Reports diarrhea is improving today. Stool is getting formed Hyperglycemia New onset diabetes Was noted to be hyperglycemic on admission HbA1c was 10.5 Extensive diabetes education was provided Started on metformin ER 500mg daily, to increase by 500mg weekly until maximum dose Will hold off starting insulin therapy at this time Patient agreed to change diet and work a lot on lifestyle modification. He was provided a glucometer and will keep a home blood glucose log for PCP PCP can add on to antidiabetic regimen depending on blood glucose trend at home Morbid obesity Patient counseled on need for weight loss PCP can arrange Sleep study as outpatient Total Time Total Time Spent Total Time Spent (In Minutes): 35 Total Time Includes: Examination of the Patient, Discharge Planning and Medication Reconciliation Discharge Plan Discharge Items Patient Disposition: Home - Self-Care Reason For Visit: BLOOD DIARRHEA, HYPERGLYCEMIA Discharge Diagnosis: EPEC Enterocolitis Newly diagnosed Diabetes mellitus Condition on Discharge: Fair Activity: Resume your previous activity Non-emergency contact: Primary Care Provider Call non-emergency contact if: you have any medication questions and your symptoms worsen Follow-up/Referrals: Debra Coburn MD [Primary Care Provider] - (Please call for follow up appointment within a week) Diet: Carb Consistent or DM2 Addtl Attending Provider Instructions: Mr Zimmer You came to the hospital complaining of bloody diarrhea. You were evaluated and managed for this. You were also found to have Diabetes mellitus. You are being discharged on Metformin ER 500mg daily. Please increase weekly by 500mg as we discussed to a maximum of 2000mg per day. Please monitor your blood glucose and keep a log for your Primary Doctor. You need lifestyle modification including diet, exercise and weight loss to help manage your diabetes. Please ensure follow up with your Primary Doctor. It was a pleasure taking care of you. Pending Studies at Discharge: No Stand-Alone Forms: My [facility] [place] [facility], Smoking Cessation Medications and DC Order Prescriptions: New metformin 500 mg tablet extended release 24 hr 500 mg PO DAILY Qty: 90 0RF Rx Instructions: Please increase by 500mg every week to maximum of 2000mg a day as instructed (DME) Contour Next Test Strips Strip See Rx Instructions .Route Qty: 100 0RF Rx Instructions: As directed. Check once a day (DME) lancets [Microlet Lancet] Misc See Rx Instructions .Route Qty: 100 0RF Rx Instructions: As directed. Check once a day Discharge Orders: Discharge Order (Routine); Ordered 11/12/23 Ordered By: Umu Bean/Other Patient Handouts: Long-Term Complications of Diabetes, High Blood Sugar (Hyperglycemia), Managing Type 2 Diabetes, How to Check Your Blood Sugar, Healthy Meals for Diabetes, Understanding Carbohydrates, Diabetes Carbs Fats Protein Admission Data Admit Date/Time: 11/11/23 01:55 Attending Provider: Umu Vidal I. Admit Provider: Moris Bond Primary Care Provider: Debra Coburn Other Providers: Moris Bond; Jf Morales Other Interventions: Discharge Summary Assessment (RN) Last Done: 11/12/23 11:15
== END 2023-11-12 16:31 | disposition home or self-care (01) | DRG 372 ==
LOC: ED 19:47 → EDINP 11-11 01:55 → INTOOBSV 11-11 01:55 → 3N 11-11 02:20